=== PATIENT | female | born 1955 | race Caucasian/White ===

== ENCOUNTER 2021-02-13 14:47 | Emergency (ER) | payer OTHER ==
[2021-02-13 15:01] VITALS: BP 127/76; PULSE 87; TEMP 98.1; BMI 28.7
[2021-02-13] MEDS ORDERED: IBUPROFEN 600 MG TABLET (FP) PO ONE ×2 (16:51→17:09)
== END 2021-02-13 19:59 | disposition home or self-care (01) ==
LOC: JERFT 14:47
DX: I83.811 Varicose veins of right lower extremity with pain (principal)
CPT/HCPCS: 93971-TC; 99284-25